=== PATIENT | male | born 1955 | race Caucasian/White ===

== ENCOUNTER 2018-09-18 22:00 | Emergency (ER) | payer BC, OTHER ==
[~2018-09-18] VITALS: Ht 185.4 cm; Wt 107.7 kg
[~2018-09-18 22:00] MED LIST: CLARITIN 1010 MG/TAB PO; FLONASE NASAL S16 GM NS; LEVAQUIN 750MG750 M1 PO; MUCINEX 60600 MG/TA1 PO; PHENERGAN 25 TA25 MG PO; PHENERGAN W/CO120 ML PO; PROTONIX 40MG T40 MG PO; ZOFRAN 4MG T4 MG/TAB PO; ZOVIRAX400 MG PO; ZOVIRAX500 MG IV
[2018-09-18 22:06] VITALS: BP 127/72; TEMP 97.4
[2018-09-18 23:05] LABS: BASO % 0.5 % (0.0-2.0); EOS # 0.3 (0.0-0.7); EOS % 4.6 % (0-4.0); GRAN # 3.5 (1.4-6.5); GRAN % 59.7 % (42.2-75.2); HEMATOCRIT 41.8 % (42.0-52.0); HEMOGLOBIN 14.7 g/dl (13.5-18.0); LYMPH # 1.6 (1.2-3.4); LYMPH % 26.5 % (20.0-51.0); MEAN CELL VOLUME 93 fl (80.0-100.0); MEAN CORPUSCULAR HEMOGLOBIN 33 pg (27.0-31.0); MEAN CORPUSCULAR HGB CONC 35 g/dl (33.0-37.0); MONO # 0.5 (0.1-0.6); MONO % 8.5 % (1.7-9.3); PLATELET COUNT 150 K/mm3 (130-400); RED BLOOD COUNT 4.49 M/mm3 (4.20-5.60); REDCELL DISTRIBUTION WIDTH-CV 12.6 % (11.5-14.5)
[2018-09-19] MEDS ORDERED: DOXYCYCLINE 10100 MG PO (01:11)
[2018-09-19 01:30] VITALS: PULSE 99
== END 2018-09-19 01:30 | disposition home or self-care (01) ==
LOC: COL.ER 22:00
PROVIDERS: Nurse Practitioner
DX: S80.12XA Contusion of left lower leg, initial encounter (principal); L03.116 Cellulitis of left lower limb; W20.8XXA Other cause of strike by thrown, projected or falling object, initial encounter; Y92.009 Unspecified place in unspecified non-institutional (private) residence as the place of occurrence of the external cause

== ENCOUNTER 2019-11-13 06:20 | Emergency (ER) | payer SELFPAY ==
[~2019-11-13] VITALS: Ht 188 cm; Wt 106.8 kg
[~2019-11-13 06:20] MED LIST changes: +DOXYCYCLINE 10100 MG PO
[2019-11-13] MEDS ORDERED: CLARITIN 1010 MG/TAB PO (06:29)
[2019-11-13] MEDS ORDERED: CEPHALEXIN500 M1 PO (07:18)
[2019-11-13 07:28] VITALS: BP 120/75; PULSE 72
== END 2019-11-13 07:28 | disposition home or self-care (01) ==
LOC: COL.ER 06:20
DX: S81.812A Laceration without foreign body, left lower leg, initial encounter (principal); W25.XXXA Contact with sharp glass, initial encounter; Y99.0 Civilian activity done for income or pay

== ENCOUNTER 2022-05-24 15:25 | Emergency (ER) | payer OTHER ==
[~2022-05-24] VITALS: Ht 188 cm; Wt 107.7 kg
[~2022-05-24 15:25] MED LIST changes: +CEPHALEXIN500 M1 PO
[2022-05-24 15:31] VITALS: TEMP 98.1
[2022-05-24] MEDS ORDERED: PERCOCET 325 MG1 TA2 PO (17:36)
[2022-05-24] MEDS ORDERED: CEPHALEXIN500 M1 PO (17:36)
[2022-05-24 17:48] VITALS: BP 145/80; PULSE 60
== END 2022-05-24 17:48 | disposition home or self-care (01) ==
LOC: COL.ER 15:25
DX: S62.636A Displaced fracture of distal phalanx of right little finger, initial encounter for closed fracture (principal); W31.9XXA Contact with unspecified machinery, initial encounter; Y92.59 Other trade areas as the place of occurrence of the external cause; Y99.0 Civilian activity done for income or pay